=== PATIENT | female | born 1945 | race Caucasian/White ===

== ENCOUNTER 2020-12-23 16:26 | Inpatient (IN) | payer OTHER ==
[~2020-12-23] VITALS: Ht 172.7 cm; Wt 72.7 kg
[2020-12-23 17:15] LABS: Source, Urine Catheter
[2020-12-23 17:22] LABS: BASOPHILS ABSOLUTE AUTO 0.03 K/mm3 (0.00-0.23); BASOPHILS PERCENT AUTO 0 % (0-2); EOSINOPHILS PERCENT AUTO 0 % (0-6); Hematocrit 36.4 % (33.0-51.0); Hemoglobin 12.5 g/dL (11.5-16.0); IMMATURE GRAN ABSOLUTE AUTO 0.06 K/mm3 (0.00-0.10); IMMATURE GRAN PERCENT AUTO 0 % (0-1); LYMPHOCYTES ABSOLUTE AUTO 1.91 K/mm3 (0.84-5.20); LYMPHOCYTES PERCENT AUTO 12 % (21-46); MONOCYTES ABSOLUTE AUTO 2.33 K/mm3 (0.16-1.47); MONOCYTES PERCENT AUTO 15 % (4-13); Mean Corpuscular HGB 32.4 pg (26.0-34.0); Mean Corpuscular HGB Conc 34.3 g/dL (31.5-36.5); Mean Corpuscular Volume 94 fL (80-100); Mean Platelet Volume 10.9 fL (9.1-12.4); NEUTROPHILS ABSOLUTE AUTO 11.32 K/mm3 (1.96-9.15); NEUTROPHILS PERCENT AUTO 72 % (41-73); Platelet Count 369 K/mm3 (150-400); RDW Coefficient Variation 15.3 % (11.7-14.2); RDW Standard Deviation 52.3 fL (35.1-46.3); Red Blood Cell Count 3.86 M/mm3 (3.80-5.20); White Blood Cell Count 15.65 K/mm3 (4.00-11.30)
[2020-12-23 17:26] LABS: Appearance, Urine Clear (Clear); Blood, Urine 2+ (Neg); Color, Urine Amber (P-Yellow); Glucose Qualitative, Urine Neg (Neg); Ketones, Urine 2+ (Neg); Leukocyte Esterase, Urine 2+ (Neg); Nitrite, Urine Neg (Neg); Protein, Urine 2+ (Neg); Urobilinogen, Urine 1+ (Normal)
[2020-12-23 17:36] LABS: Bilirubin, Urine 1+ (Neg)
[2020-12-23 17:39] LABS: Bacteria Few /hpf; Red Blood Cells, Urine Not Seen /hpf (0-2); Squamous Epithelial Cells Few /hpf (Few)
[2020-12-23 18:21] LABS: Albumin, Blood 2.1 g/dL (3.4-5.0); Albumin/Globulin Ratio 0.6 (0.8-1.8); Bilirubin, Total 1.1 mg/dL (0.1-1.0); Bun/Creatinine Ratio 26.3 (12.0-20.0); Calcium, Blood 5.2 mg/dL (8.5-10.1); Creatinine, Blood 1.14 mg/dL (0.40-1.00); Globulin, Blood 3.4 g/dL (2.2-4.0); Potassium, Blood 2.3 mmol/L (3.5-5.5); Total Protein, Blood 5.5 g/dL (6.4-8.2)
[2020-12-23 18:28] LABS: International Normalized Ratio 1.42; Prothrombin Time Results 14.9 Sec (9.7-11.5)
[2020-12-23 19:35] LABS: Creatine Kinase MB 21.9 ng/mL (0.0-3.6); Creatine Kinase MB Index 1.2 (0.0-4.0)
[2020-12-23 20:04] LABS: Magnesium, Blood 0.4 mg/dL (1.6-2.4)
[2020-12-23 20:46] LABS: Troponin I 0.027 ng/mL (0.000-0.040)
[2020-12-23 20:47] LABS: Thyroid Stimulating Hormone 1.84 uIU/mL (0.360-4.800)
[2020-12-23 20:48] LABS: Phosphorus, Blood 3.1 mg/dL (2.5-4.9)
[2020-12-23] MEDS ORDERED: POTCHL20ER (23:21)
--- NOTE | 2020-12-23 23:56 | NUR ---
PT HISTORY UNABLE TO OBTAIN FULL PT HX D/T CONFUSION
[2020-12-24 02:13] LABS: BASOPHILS ABSOLUTE AUTO 0.01 K/mm3 (0.00-0.23); BASOPHILS PERCENT AUTO 0 % (0-2); EOSINOPHILS PERCENT AUTO 0 % (0-6); Hematocrit 30.4 % (33.0-51.0); Hemoglobin 10.7 g/dL (11.5-16.0); IMMATURE GRAN ABSOLUTE AUTO 0.03 K/mm3 (0.00-0.10); IMMATURE GRAN PERCENT AUTO 0 % (0-1); LYMPHOCYTES ABSOLUTE AUTO 1.91 K/mm3 (0.84-5.20); LYMPHOCYTES PERCENT AUTO 17 % (21-46); MONOCYTES ABSOLUTE AUTO 2.03 K/mm3 (0.16-1.47); MONOCYTES PERCENT AUTO 18 % (4-13); Mean Corpuscular HGB 32.2 pg (26.0-34.0); Mean Corpuscular HGB Conc 35.2 g/dL (31.5-36.5); Mean Corpuscular Volume 92 fL (80-100); Mean Platelet Volume 10.4 fL (9.1-12.4); NEUTROPHILS ABSOLUTE AUTO 7.56 K/mm3 (1.96-9.15); NEUTROPHILS PERCENT AUTO 65 % (41-73); Platelet Count 316 K/mm3 (150-400); RDW Standard Deviation 49.7 fL (35.1-46.3); Red Blood Cell Count 3.32 M/mm3 (3.80-5.20); White Blood Cell Count 11.54 K/mm3 (4.00-11.30)
[2020-12-24 02:43] LABS: Troponin I 0.037 ng/mL (0.000-0.040)
[2020-12-24 02:53] LABS: Albumin, Blood 1.6 g/dL (3.4-5.0); Albumin/Globulin Ratio 0.5 (0.8-1.8); Bilirubin, Total 0.8 mg/dL (0.1-1.0); Bun/Creatinine Ratio 25.4 (12.0-20.0); Calcium, Blood 5.6 mg/dL (8.5-10.1); Creatinine, Blood 1.14 mg/dL (0.40-1.00); Potassium, Blood 2.3 mmol/L (3.5-5.5); Total Protein, Blood 4.6 g/dL (6.4-8.2)
--- NOTE | 2020-12-24 05:28 | NUR ---
SHIFT SUMMARY PT ARRIVED DURING SHIFT FROM ED. ALERT AND ORIENTED X 3, FORGETFUL AT TIMES. PT HAS EXCORIATIONS THROUGHOUT. SEE PICTURES IN CHART. MEPLEX AND BARRIER CREAM APPLIED. ARCHIBALD PATENT TO GRAVITY. PT ABLE TO ASSIST IN TURNING SELF IN BED. REFUSED Q 2 TURNS. PHYSICIAN NOTIFIED OF CRITICAL LAB VALUES AND ORDERS PLACED AND GIVEN. HR STABLE. BP STABLE. OXYGEN SATURATION MAINTAINED ABOVE 92% ON RA. REPORTS NO CP OR PRESSURE. WILL CONTINUE TO MONITOR UNTIL REPORT GIVEN TO DAYSHIFT RN.
--- NOTE | 2020-12-24 06:23 | NUR ---
PHYSICIAN UPDATED PHYSICIAN NOTIFIED OF LOW URINE OUTPUT. NO ORDERS GIVEN AT THIS TIME. WILL CONTINUE TO MONITOR.
[2020-12-24 13:30] LABS: Bun/Creatinine Ratio 26.8 (12.0-20.0); Calcium, Blood 6.3 mg/dL (8.5-10.1); Creatinine, Blood 0.97 mg/dL (0.40-1.00); Magnesium, Blood 1.7 mg/dL (1.6-2.4); Potassium, Blood 2.9 mmol/L (3.5-5.5)
--- NOTE | 2020-12-24 17:33 | NUR ---
SHIFT SUMMARY PT A&Ox3; FORGETFUL; STATES SHE DOES NOT KNOW HOW/WHY SHE IS HERE. PT CALM AND COOPERATIVE WITH CARE. PT DENIES PAIN, CHEST PAIN, SOB, NAUSE AND DIZZINESS. PT RESTING IN BED DURING SHIFT, UP TO BSC WITH 1 PERSON ASSIST. PT RECEIVIGN IV/PO POTASSIUM, IV MAGNESIUM AND IV CALCIUM GLUCANATE DURING SHIFT. PT LACTIC ACID 3.9; NOTIFIED DR DOSS, NO NEW ORDERS. NOTIFIED DR DOSS OF VENOUS DUPLEX RESULTS; DR TO PLACE ORDERS. DAUGHTER CALLED IN AND EXPRESSED CONCERNS ON MOTHERS LIVING SITUATION, STATES SHE IS LOOKING INTO ASSISTED LIVING. PT REFUSING TO EAT MAJOIRTY OF MEALS; STATERS SHE IS A PICKY EAT, WHEN ASKED WHAT SHE LIKES TO EAT SHE STATES BURGERKING AND DRINKS COKE. VSS. NO OTHER ACUTE CHANGES NOTED. WILL CONTINUE TO MONITOR UNITL REPORT GIVEN TO ONCOMING RN.
[2020-12-25 03:39] LABS: BASOPHILS ABSOLUTE AUTO 0.01 K/mm3 (0.00-0.23); BASOPHILS PERCENT AUTO 0 % (0-2); EOSINOPHILS ABSOLUTE AUTO 0.02 K/mm3 (0.00-0.68); EOSINOPHILS PERCENT AUTO 0 % (0-6); Hematocrit 26.1 % (33.0-51.0); Hemoglobin 9.3 g/dL (11.5-16.0); IMMATURE GRAN ABSOLUTE AUTO 0.05 K/mm3 (0.00-0.10); IMMATURE GRAN PERCENT AUTO 1 % (0-1); LYMPHOCYTES ABSOLUTE AUTO 2.75 K/mm3 (0.84-5.20); LYMPHOCYTES PERCENT AUTO 29 % (21-46); MONOCYTES ABSOLUTE AUTO 1.04 K/mm3 (0.16-1.47); MONOCYTES PERCENT AUTO 11 % (4-13); Mean Corpuscular HGB 32.6 pg (26.0-34.0); Mean Corpuscular HGB Conc 35.6 g/dL (31.5-36.5); Mean Corpuscular Volume 92 fL (80-100); Mean Platelet Volume 10.2 fL (9.1-12.4); NEUTROPHILS ABSOLUTE AUTO 5.74 K/mm3 (1.96-9.15); NEUTROPHILS PERCENT AUTO 60 % (41-73); Platelet Count 208 K/mm3 (150-400); RDW Standard Deviation 49.6 fL (35.1-46.3); Red Blood Cell Count 2.85 M/mm3 (3.80-5.20); White Blood Cell Count 9.61 K/mm3 (4.00-11.30)
[2020-12-25 03:58] LABS: Albumin, Blood 1.4 g/dL (3.4-5.0); Anion Gap 6 mmol/L (6-16); Blood Urea Nitrogen 20 mg/dL (8-24); Bun/Creatinine Ratio 26.5 (12.0-20.0); CO2, Blood 25 mmol/L (21-32); Calcium, Blood 6.1 mg/dL (8.5-10.1); Chloride, Blood 112 mmol/L (98-108); Creatinine, Blood 0.76 mg/dL (0.40-1.00); Glomerular Filtration Rate >60 (60-); Glucose, Blood 99 mg/dL (70-99); Magnesium, Blood 1.5 mg/dL (1.6-2.4); Phosphorus, Blood 1.2 mg/dL (2.5-4.9); Potassium, Blood 3.2 mmol/L (3.5-5.5); Sodium, Blood 143 mmol/L (136-145)
--- NOTE | 2020-12-25 18:44 | NUR ---
SHIFT SUMMARY PT A&Ox3; FORGETFUL AT TIMES; IS NOT SURE WHAT HAPPENED PRIOR TO BEING FOUND DOWN. PT DENIES PAIN, SOB, NAUSEA AND DIZZINESS. PT CONTINUES TO REFUSE MAJORITY OF MEALS; ASKING ONLY FOR [employer] DRESSING FOR SALAD AND "AN ICE COLD COKE". PT RECIEVING IV FLUIDS AND SUPPLEMENTS. ARCHIBALD IN PLACE AND DRAINING; INCREASED URINARY OUTPUT NOTED. VSS. NO OTHER ACUTE CHANGES NOTED DURING SHIFT. WILL CONTINUE TO MONITOR UNITL REPORT GIVEN TO ONCOMING RN.
[2020-12-26 04:14] LABS: BASOPHILS ABSOLUTE AUTO 0.01 K/mm3 (0.00-0.23); BASOPHILS PERCENT AUTO 0 % (0-2); EOSINOPHILS ABSOLUTE AUTO 0.03 K/mm3 (0.00-0.68); EOSINOPHILS PERCENT AUTO 0 % (0-6); Hemoglobin 9.9 g/dL (11.5-16.0); IMMATURE GRAN ABSOLUTE AUTO 0.07 K/mm3 (0.00-0.10); IMMATURE GRAN PERCENT AUTO 1 % (0-1); LYMPHOCYTES ABSOLUTE AUTO 3.27 K/mm3 (0.84-5.20); LYMPHOCYTES PERCENT AUTO 32 % (21-46); MONOCYTES ABSOLUTE AUTO 1.15 K/mm3 (0.16-1.47); MONOCYTES PERCENT AUTO 11 % (4-13); Mean Corpuscular HGB 32.8 pg (26.0-34.0); Mean Corpuscular HGB Conc 35.4 g/dL (31.5-36.5); Mean Corpuscular Volume 93 fL (80-100); Mean Platelet Volume 9.9 fL (9.1-12.4); NEUTROPHILS ABSOLUTE AUTO 5.72 K/mm3 (1.96-9.15); NEUTROPHILS PERCENT AUTO 56 % (41-73); Platelet Count 225 K/mm3 (150-400); RDW Coefficient Variation 15.1 % (11.7-14.2); RDW Standard Deviation 50.7 fL (35.1-46.3); Red Blood Cell Count 3.02 M/mm3 (3.80-5.20); White Blood Cell Count 10.25 K/mm3 (4.00-11.30)
[2020-12-26 04:34] LABS: Albumin, Blood 1.5 g/dL (3.4-5.0); Anion Gap 4 mmol/L (6-16); Blood Urea Nitrogen 13 mg/dL (8-24); Bun/Creatinine Ratio 19.9 (12.0-20.0); CO2, Blood 29 mmol/L (21-32); Calcium, Blood 6.7 mg/dL (8.5-10.1); Chloride, Blood 107 mmol/L (98-108); Creatinine, Blood 0.65 mg/dL (0.40-1.00); Glomerular Filtration Rate >60 (60-); Glucose, Blood 83 mg/dL (70-99); Magnesium, Blood 1.5 mg/dL (1.6-2.4); Phosphorus, Blood 2.1 mg/dL (2.5-4.9); Potassium, Blood 3.7 mmol/L (3.5-5.5); Sodium, Blood 140 mmol/L (136-145)
--- NOTE | 2020-12-26 06:20 | NUR ---
SHIFT SUMMARY PT ALERT AND ORIENTED TO SELF AND YEAR. AGGITATED AT TIMES. REFUSING CARE AT TIMES. HR STABLE. BP STABLE. MAP ABOVE 65. PT TURNED Q 2 HRS. ARCHIBALD PATENT AND DRAINING TO GRAVITY. OXYGEN SATURATION MAINTAINED ABOVE 92% ON RA. NO CP OR PRESSURE REPORTED. WILL CONTINUE TO MONITOR UNTIL REPORT GIVEN TO KALEB BARNETT.
--- NOTE | 2020-12-26 08:10 | NUR ---
SPOKE WITH DR. GEIGER REGARDING THIS PATIENT. NOTIFIED HER PATIENT MORE CONFUSED LAST NIGHT AND BANKING SERVICES ADVISOR WAS NOT ABLE TO GIVE HER ANY ORAL MEDICATIONS. DR. GEIGER STATES SHE ORDERED MAG-OX BUT THEN SHE CANCELLED IT, GIVE THE ONE THAT IS ALREADY ORDERED. DR. GEIGER STATES OK TO GET PATIENT UP ALTHOUGH PATIENT HAS A DVT.
--- NOTE | 2020-12-26 13:04 | NUR ---
1 UNIT PRBCS FINISHED INFUSING AT 1304. VSS. FINE CRACKLES HEARD IN THE BASES OF HER LUNGS, UNCHANGED FROM PREVIOUSLY.
[2020-12-26 14:33] LABS: Magnesium, Blood 1.9 mg/dL (1.6-2.4); Phosphorus, Blood 1.7 mg/dL (2.5-4.9)
--- NOTE | 2020-12-26 15:06 | NUR ---
PATIENT'S MAGNESIUM AND PHOSPHORUS RESULTS POPPED UP BUT PATIENT'S MAGNESIUM PIGGYBACK JUST FINISHED INFUSING AT 1500. LAB WAS NOT SUPPOSED TO BE DRAWN UNTIL 1 HOUR AFTER PIGGYBACK COMPLETED. CALLED AND NOTIFIED LAB. THEY REQUESTED THAT IT BE REORDERED FOR 1600 AND THEY WILL CLEAR LAST MAGNESIUM RESULT.
--- NOTE | 2020-12-26 19:27 | NUR ---
SHIFT SUMMARY: PATIENT A/OX2-3, HAS BEEN PLEASANT AND COOPERATIVE WITH CARE. UP TO CHAIR WITH 2 ASSIST AND GAIT BELT, SLOW ON HER FEET AND NEEDS DIRECTION ON WHERE TO STEP. STATUS CHANGED TO MEDICAL WITHOUT TELE. NO DIARRHEA THIS SHIFT. EXCORIATIONS TO BUTTOCKS AND LOW BACK, ALLEVYN DRESSING PLACED AND BARRIER CREAM APPLIED. MAGNESIUM PIGGYBACK GIVEN AND ELECTROLYTE MEDICATIONS ADJUSTED, SEE EMAR. PATIENT SAT UP IN CHAIR ALL OF THE AFTERNOON PER HER REQUEST. REPORT GIVEN TO ONCOMING RN.
[2020-12-27 04:59] LABS: Anion Gap 3 mmol/L (6-16); Blood Urea Nitrogen 9 mg/dL (8-24); Bun/Creatinine Ratio 12.5 (12.0-20.0); CO2, Blood 31 mmol/L (21-32); Calcium, Blood 6.8 mg/dL (8.5-10.1); Chloride, Blood 105 mmol/L (98-108); Creatinine, Blood 0.72 mg/dL (0.40-1.00); Glomerular Filtration Rate >60 (60-); Glucose, Blood 79 mg/dL (70-99); Magnesium, Blood 1.6 mg/dL (1.6-2.4); Phosphorus, Blood 2.3 mg/dL (2.5-4.9); Potassium, Blood 4.1 mmol/L (3.5-5.5); Sodium, Blood 139 mmol/L (136-145)
--- NOTE | 2020-12-27 06:35 | NUR ---
SHIFT SUMMARY ASSUMED CARE OF PT AT 1900. PT IS A/OX3. HEART SOUNDS REGULAR, LUNG SOUNDS ARE DIMINISHED AT THE BASES WITH FINE CRACKLES. PT HAS A CATHETER DRAINING WITH GRAVITY, URINE IS CLEAR AND YELLOW. PT HAS SCRAPES ON HER BACK, MEPELEX IN PLACE. PT HAS 3+ EDEMA IN BLE. NO ACUTE EVENTS DURING THE NIGHT. PT SLEPT T/O THE NIGHT. PT STATES THAT HER DAUGHTER IS COMING TO GET HER THIS MORNING. CALL LIGHT IN REACH, BED IN LOWEST POSITION.
[2020-12-27] MEDS ORDERED: CALCIUM CARBON500 M1 PO (11:54)
[2020-12-27] MEDS ORDERED: MAGNESIUM OXID500 MG PO (11:55)
[2020-12-27] MEDS ORDERED: K-Phos Origina500 MG PO (11:56)
[2020-12-27] MEDS ORDERED: XARELTO15 M1 PO (11:59)
[2020-12-27] MEDS ORDERED: Vitamin B Comple1 EA PO (11:59)
[2020-12-27] MEDS ORDERED: XARELTO20 MG PO (12:00)
--- NOTE | 2020-12-27 13:30 | NUR ---
PT WAS DISCHARGED TO HOME TODAY WITH DISCHARGE ORDERS. PT TO CONTINUE MEDS AT HOME WITH HOME HEALTH ORDERED WELL. ARCHIBALD WAS DISCONTINUED FOR THE SHIFT PT USES BSC FOR TOILETING, PT/OT WORKED WITH PT THIS AM, [facility] FOR TRANSFERS. 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 PRECRIPTION SENT TO [facility], DISCHARGE MEDICATIONS AND INSTRUCTIONS DISCLOSED WITH MARGO BARNETT. PT ACCOMPANIED BY PCT VIA WHEELCHAIR FOR TRANSPORT. DAUGHTER PROVIDED TRANSPORTATION FOR PT. ALL BELONGINGS SENT WITH PT.
== END 2020-12-27 13:24 | disposition home health service (06) | DRG 682 ==
LOC: ER 16:26 → EDBD 16:26 → PCU 21:06 → ENPENDDIS 12-27 08:57 → PCU 12-27 13:24
PROVIDERS: Family Medicine; Nurse Practitioner Acute Care; Student in an Organized Health Care Education/Training Program; ADMIT Family Medicine
DX: N17.9 Acute kidney failure, unspecified (principal); E43 Unspecified severe protein-calorie malnutrition; M62.82 Rhabdomyolysis; E87.2 Acidosis; Z68.1 Body mass index [BMI] 19.9 or less, adult; I82.431 Acute embolism and thrombosis of right popliteal vein; I82.451 Acute embolism and thrombosis of right peroneal vein; E83.51 Hypocalcemia; E87.6 Hypokalemia; E83.42 Hypomagnesemia; Z87.891 Personal history of nicotine dependence; E86.0 Dehydration; Z66 Do not resuscitate; L89.152 Pressure ulcer of sacral region, stage 2
CPT/HCPCS: 36415; 51702; 71045; 80048; 80053; 80069; 81001; 82330; 82550; 82553; 83605; 83735; 84100; 84443; 84484; 85025; 85610; 87086; 93005; 93010; 93971; 96361-59; 96365-59; 96375-59; 97110; 97116; 97161; 99285-25; A9270; J0610; J1650; J3475; J3480; J7030; J7060; J7120